=== PATIENT | male | born 1960 | race Two or more races ===

== ENCOUNTER → 2018-09-01 | Emergency (ER) | payer OTHER ==
[~2018-09-01] VITALS: Ht 170.2 cm; Wt 68.9 kg
[~2018-09-01] MED LIST: IBUPROFEN; KETO10TA2 PO; ORPHENADRINE C100 MG PO; PNEU16DI2; PRILOSEC20 MG
== END | disposition home or self-care (01) ==
LOC: ER 00:21
DX: S20.211A Contusion of right front wall of thorax, initial encounter (principal); V49.9XXA Car occupant (driver) (passenger) injured in unspecified traffic accident, initial encounter; Y93.89 Activity, other specified; Y92.488 Other paved roadways as the place of occurrence of the external cause; Y99.8 Other external cause status

== ENCOUNTER 2023-08-28 07:04 | Emergency (ER) | payer OTHER ==
[~2023-08-28] VITALS: Ht 167.6 cm; Wt 68.0 kg
[2023-08-28] MEDS ORDERED: MONTELUKAST SOD10 MG (07:15)
[2023-08-28] MEDS ORDERED: WIXELA 100-501 EACH (07:16)
[2023-08-28] MEDS ORDERED: TAMS0.4C (07:16)
[2023-08-28] MEDS ORDERED: DICLOFENAC SODI75 MG PO (09:21)
== END 2023-08-28 09:29 | disposition home or self-care (01) ==
LOC: ER 07:04
DX: M70.71 Other bursitis of hip, right hip (principal)

== ENCOUNTER 2025-05-29 05:01 | Emergency (ER) | payer OTHER ==
[~2025-05-29] VITALS: Ht 167.6 cm; Wt 69.9 kg
[~2025-05-29 05:01] MED LIST changes: +DICLOFENAC SODI75 MG PO; +MONTELUKAST SOD10 MG; +TAMS0.4C; +WIXELA 100-501 EACH
[2025-05-29] MEDS ORDERED: FAMOTIDINE/PF 20 MG in 0.9 % SODIUM CHLORIDE 8 ML IV PUSH STA (05:33)
[2025-05-29] MEDS ORDERED: KETOROLAC TROMETHAMINE 30 MG VIAL IV ONE (05:45)
[2025-05-29] MEDS ORDERED: METOCLOPRAMIDE HCL 10 MG in DEXTROSE 5 % IN WATER 50 ML IV ONE (05:45)
[2025-05-29] MEDS ORDERED: 0.9 % SODIUM CHLORIDE 1,000 ML IV SCH (05:45)
[2025-05-29 06:01] LABS: BASO % 0.7 % (0.1-1.2); EOS # 1.04 (0.04-0.54); EOS % 15.0 % (0.7-7.0); LYMPH # 1.61 (1.18-3.74); LYMPH % 23.2 % (19.3-53.1); MEAN PLATELET VOLUME 10.30 fl (9.4-12.4); MONO # 0.53 (0.24-0.82); MONO % 7.6 % (4.7-12.5); NEUT # 3.67 (1.56-6.13); NEUT % 53.1 % (34.0-71.1); RED CELL DISTRIBUTION WIDTH 11.9 % (11.6-14.4)
[2025-05-29 06:25] LABS: ALT/SGPT 53.0 U/L (12-78); AST/SGOT 50.0 U/L (15-37); BILIRUBIN TOTAL 0.56 mg/dL (0.3-1.2); BUN CREA RATIO 13.0 (7.0-25.0); CREATININE SERUM 1.05 mg/dL (0.70-1.30); GFR 71.11; GLOBULINA 3.4 G/DL (2.4-3.5); GLUCOSE FASTING 152.0 mg/dL (65-100); OSMOLALITY SERUM 290.0 MOSM/KG (275-295)
[2025-05-29] MEDS ORDERED: CARAFATE1 GM PO (06:45)
[2025-05-29] MEDS ORDERED: PEPCID AC20 MG PO (06:45)
== END 2025-05-29 07:24 | disposition home or self-care (01) ==
LOC: ER 05:01
PROVIDERS: General Practice
DX: K29.70 Gastritis, unspecified, without bleeding (principal)